=== PATIENT | female | born 1985 | race Two or more races ===

== ENCOUNTER 2020-12-22 17:34 | Inpatient (IN) | payer OTHER ==
[~2020-12-22] VITALS: Ht 152.4 cm; Wt 71.7 kg
[2020-12-22] MEDS ORDERED: PRENATALES (17:47)
[2020-12-23] MEDS ORDERED: BUTALB-ACETAMI1 EAC2 (07:56)
[2020-12-23] MEDS ORDERED: PRENATAL + DHA1 EAC1 PO (07:56)
== END 2020-12-27 10:15 | disposition home or self-care (01) | DRG 819 ==
LOC: ER 17:34 → LDR 21:00 → OB/GYN 21:00 → LDR 21:12 → OB/GYN 12-23 10:05 → O/R 12-23 10:46 → LDR 12-23 11:28 → OB/GYN 12-24 08:24
PROVIDERS: ADMIT Obstetrics & Gynecology; ATTEND Obstetrics & Gynecology
PROC: 4A1HXFZ Monitoring of Products of Conception, Cardiac Rhythm, External Approach (ICD-10-PCS; 2020-12-22)
PROC: 0UVC7ZZ Restriction of Cervix, Via Natural or Artificial Opening (ICD-10-PCS; principal; 2020-12-23 07:00)
PROC: BY4CZZZ Ultrasonography of Second Trimester, Single Fetus (ICD-10-PCS; 2020-12-24)
DX: O34.32 Maternal care for cervical incompetence, second trimester (principal); Z3A.18 18 weeks gestation of pregnancy; Z20.822 Contact with and (suspected) exposure to COVID-19

== ENCOUNTER 2021-05-13 10:00 | Inpatient (IN) | payer OTHER ==
[~2021-05-13] VITALS: Ht 152.4 cm; Wt 4.1 kg
[~2021-05-13 10:00] MED LIST: BUTALB-ACETAMI1 EAC2; PRENATAL + DHA1 EAC1 PO; PRENATALES
== END 2021-05-16 18:08 | disposition home or self-care (01) | DRG 783 ==
LOC: OB/GYN 05-14 01:40 → LDR 05-14 01:40 → O/R 05-14 09:45 → OB/GYN 05-14 11:41 → LDR 05-18 10:00
PROVIDERS: ADMIT Obstetrics & Gynecology Maternal & Fetal Medicine; ATTEND Obstetrics & Gynecology Maternal & Fetal Medicine
PROC: 0UB70ZZ Excision of Bilateral Fallopian Tubes, Open Approach (ICD-10-PCS; 2021-05-14)
PROC: 0UCC0ZZ Extirpation of Matter from Cervix, Open Approach (ICD-10-PCS; 2021-05-14)
PROC: 4A1HXFZ Monitoring of Products of Conception, Cardiac Rhythm, External Approach (ICD-10-PCS; 2021-05-14)
PROC: 10D00Z1 Extraction of Products of Conception, Low, Open Approach (ICD-10-PCS; principal; 2021-05-14 08:00)
DX: O65.5 Obstructed labor due to abnormality of maternal pelvic organs (principal); O34.33 Maternal care for cervical incompetence, third trimester; O34.211 Maternal care for low transverse scar from previous cesarean delivery; Z30.2 Encounter for sterilization; Z3A.39 39 weeks gestation of pregnancy; Z37.0 Single live birth; Z20.822 Contact with and (suspected) exposure to COVID-19